=== PATIENT | female | born 1960 | race Caucasian/White ===

== ENCOUNTER 2019-03-06 06:31 | Day surgery (SDC) | payer OTHER ==
[2019-03-06 07:20] LABS: #Basophils 0.1 thou/uL (0.0-0.2); #Eosinphils 0.1 thou/uL (0.0-0.7); #Lymphocytes 1.6 thou/uL (1.20-3.40); #Monocytes 0.5 thou/uL (0.11-0.59); %Basophils 1.1 % (0.0-1.0); %Lymphocytes 19.5 % (21.0-51.0); %Monocytes 6.4 % (0.0-10.0); Hemoglobin 13.1 g/dL (12.0-16.0); Mean Corpuscular HGB CONC 33.7 g/dL (32.0-36.0); Mean Corpuscular Hemoglobin 30.4 pg (27.0-31.0); Mean Corpuscular Volume 90.3 fL (78.0-98.0); Mean Platelet Volume 9.3 fL (7.4-10.4); Platelet Count 224 thou/uL (130-400); RBC Distribution Width 11.9 % (11.5-14.5); White Blood Cell (WBC) Count 8.4 thou/uL (4.8-10.8)
[2019-03-06 07:33] LABS: ALT (SGPT) 27 U/L (8-55); AST (SGOT) 21 U/L (5-34); Albumin 4.5 g/dL (3.5-5.0); Alkaline Phosphatase 74 U/L (40-110); Anion Gap 14 mmol/L (10-20); BUN (Urea Nitrogen) 14 mg/dL (9.8-20.1); Bilirubin, Total 0.5 mg/dL (0.2-1.2); Calc. Creatinine Clearance 0 mL/min (70-130); Calcium 9.1 mg/dL (7.8-10.44); Carbon Dioxide 26 mmol/L (22-29); Chloride 106 mmol/L (98-107); Estimated GFR-MDRD 79; Globulin 2.3 g/dL (2.4-3.5); Glucose 98 mg/dL (70-105); Potassium 3.9 mmol/L (3.5-5.1); Protein, Total 6.8 g/dL (6.0-8.3); Sodium 142 mmol/L (136-145)
[2019-03-06] MEDS ORDERED: PROPOFOL 200 MG/20 ML VIAL ONE (09:42)
--- NOTE | 2019-03-06 12:08 | OP ---
DATE OF PROCEDURE: 03/06/2019 TERMINAL MANAGER SURGEON: None. PROCEDURE PERFORMED: Flexible sigmoidoscopy. INDICATION: Lower GI bleeding. MEDICATIONS: See Anesthesia record. FINDINGS: After discussion of the risks, benefits, and alternatives of the procedure, informed consent was obtained and witnessed. Pre-endoscopic cardiopulmonary examination was satisfactory. Time-out was performed before sedation was achieved. Sedation was achieved with Anesthesia assistance in the endoscopy unit. Digital rectal exam was performed, which was notable for some small hemorrhoidal skin tags. A Pentax adult colonoscope was inserted into the anus and passed forward in the usual fashion. The patient has a very tortuous sigmoid colon with severe acute angulations, making advancement of the endoscope very difficult. The endoscope was unable to be advanced beyond 50 cm. However, I was able to visualize what appears to be the source of recent bleeding at 40 cm from the anal verge. In the sigmoid colon, there is a diverticulum with peridiverticular erythema and edema, some small amount of pus within the diverticulum, as well as some blood clot within the diverticulum. Other diverticula visualized distal to this appeared normal. There was a small amount of trace blood in the colonic mucosa distal to this area. No active bleeding. Retroflexion in the rectum demonstrated large internal hemorrhoids. The colonoscope was completely withdrawn and the patient allowed to recover. The patient tolerated the procedure well. There were no immediate postprocedure complications. IMPRESSION: 1. Diverticulum in the sigmoid colon at 40 cm, with some pus and blood clot, likely representing the site of her recent bleeding. Diverticulitis with hemorrhage. 2. No active hemorrhage on this exam. 3. Tortuous sigmoid colon, unable to advance the endoscope beyond 50 cm. 4. Large internal hemorrhoids, nonbleeding. RECOMMENDATION: 1. Treat diverticulitis with 10 days of ciprofloxacin and Flagyl. 2. Follow up in [facility] in 2 weeks. 3. Repeat colonoscopy would need to be with a pediatric colonoscope. Job ID: [id number]
== END 2019-03-06 12:35 | disposition home or self-care (01) ==
LOC: ERS 06:31 → SDC/OP 09:50
PROVIDERS: ATTEND Internal Medicine Gastroenterology
PROC: 0DJD8ZZ Inspection of Lower Intestinal Tract, Via Natural or Artificial Opening Endoscopic (ICD-10-PCS; principal; 2019-03-06)
DX: K57.33 Diverticulitis of large intestine without perforation or abscess with bleeding (principal); K64.8 Other hemorrhoids
CPT/HCPCS: 36415; 80053; 85025; 86850; 86900; 86901; 93005; J2704